=== PATIENT | male | born 1970 | race Caucasian/White ===

== ENCOUNTER 2017-08-27 13:38 | Emergency (ER) | payer MEDICAID ==
[~2017-08-27] VITALS: Ht 172.7 cm; Wt 99.0 kg
[~2017-08-27 13:38] MED LIST: ARIP5TAB4 PO; ASPI-1053 PO; ATOR10TA87 PO; BUDE10.2 INH; IPRA4AER INH; PANT-47 PO; SERT100T10 PO; UMEC1DIS INH
[2017-08-27 13:44] VITALS: BP 150/96
[2017-08-27] MEDS ORDERED: LIDOcaine 1.5% w/epinephrine 1:200,000 5ml ampul IJ ONE (14:10)
[2017-08-27] MEDS ORDERED: SULF1TAB49 PO (14:36)
== END 2017-08-27 14:39 | disposition home or self-care (01) ==
LOC: ER 13:39
DX: L02.511 Cutaneous abscess of right hand (principal); J44.9 Chronic obstructive pulmonary disease, unspecified; K21.9 Gastro-esophageal reflux disease without esophagitis; Z88.1 Allergy status to other antibiotic agents; Z91.040 Latex allergy status; Z91.018 Allergy to other foods; Z88.8 Allergy status to other drugs, medicaments and biological substances; Z79.82 Long term (current) use of aspirin
CPT/HCPCS: 10060; 87070; 87077; 87186; 99284; A6446; A6449; J3490; 99283